=== PATIENT | female | born 1970 | race Two or more races ===

== ENCOUNTER 2023-05-17 03:07 | Emergency (ER) | payer OTHER ==
[~2023-05-17] VITALS: Ht 160 cm; Wt 97.1 kg
[2023-05-17] MEDS ORDERED: KETOROLAC TROMETHAMINE 60 MG VIAL IM STA (04:04)
[2023-05-17] MEDS ORDERED: ORPHENADRINE CITRATE 30 MG/ML AMPUL IM STA (04:04)
[2023-05-17] MEDS ORDERED: ONDANSETRON HCL 2 MG/ML VIAL IV STA (04:05)
[2023-05-17] MEDS ORDERED: FAMOTIDINE/PF 20 MG/2 ML VIAL IV PUSH STA (04:06)
[2023-05-17] MEDS ORDERED: ALBUTEROL SULFATE 3 ML/2.5 MG AMPUL.NEB IH SCH (04:15)
[2023-05-17 04:46] LABS: HEMATOCRIT 36.2 % (36.0-45.00); HEMOGLOBIN 12.1 g/dL (12.0-15.00); MEAN CELL VOLUME 81.7 fL (80.00-100.00); MEAN CORPUSCULAR HEMOGLOBIN 27.4 pg (27.00-32.0); MEAN CORPUSCULAR HGB CONC 33.5 g/dl (32.0-36.0); PLATELET COUNT 202 K/uL (150-450); RED BLOOD COUNT 4.43 M/uL (4.00-6.00); RED CELL DISTRIBUTION WIDTH 16.3 % (11.5-14.5)
[2023-05-17 05:02] LABS: URINE APPEARANCE Cloudy; URINE BILIRRUBIN Negative (NEGATIVE); URINE BLOOD Small; URINE COLOR Yellow; URINE GLUCOSE Negative (NEGATIVE); URINE LEUKOCYTE Negative; URINE NITRATE Negative; URINE PROTEIN 30 (NEGATIVE); URINE UROBILINOGEN 0.2 E.U./dl
[2023-05-17 05:03] LABS: URINE BACTERIA 2733.8 uL (0.0-1933); URINE RBC 25.2 uL (0.0-20.8)
[2023-05-17 05:05] LABS: ALBUMIN 3.3 gm/dL (3.4-5.0); BILIRUBIN TOTAL 0.24 mg/dL (0.3-1.2); CALCIUM 8.8 mg/dL (8.5-10.1); CREATININE SERUM 0.85 mg/dL (0.55-1.02); GFR 70.51; GLOBULINA 4.1 G/DL (2.4-3.5); POTASSIUM 3.82 mEq/L (3.5-5.1); TOTAL PROTEIN 7.4 gm/dL (6.4-8.2)
[2023-05-17 05:10] LABS: URINE CRYSTALS FEW /HPF
[2023-05-17 06:54] LABS: ABG PH 7.443 (7.35-7.45); ABG PO2 91.3 mmHg (80-100); ABG pCO2 32.9 mmHg (35-45); SaO2 97.4 %
[2023-05-17 06:55] LABS: BASE EXCESS -1.2 mmol/l; allen test SATISFACTORY; o2 21 %; puncture site RADIAL LEFT
[2023-05-17] MEDS ORDERED: HYDROCODONE/CHLORPHEN P-STIREX 5 ML ML PO STA (07:24)
[2023-05-17] MEDS ORDERED: ZYNCOF 20-400120 ML PO (07:48)
[2023-05-17] MEDS ORDERED: PEPCID40 MG PO (07:48)
[2023-05-17] MEDS ORDERED: ONDANSETRON ODT8 MG PO (07:48)
[2023-05-17] MEDS ORDERED: OSEL75CA PO (07:48)
[2023-05-17] MEDS ORDERED: ALBUTEROL2.5 MG/3 M IH (07:52)
== END 2023-05-17 08:07 ==
LOC: ER 03:08
PROVIDERS: General Practice
DX: J10.1 Influenza due to other identified influenza virus with other respiratory manifestations (principal); Z20.822 Contact with and (suspected) exposure to COVID-19